=== PATIENT | male | born 1990 | race Caucasian/White ===

== ENCOUNTER 2022-11-28 01:24 | Emergency (ER) | payer OTHER ==
[~2022-11-28] VITALS: Ht 182.9 cm; Wt 109.1 kg
[2022-11-28 02:14] LABS: BASO # 0.1 10^3/uL (0.0-0.2); BASO % 0.7 % (0.0-1.0); EOS # 0.4 10^3/uL (0.0-0.5); EOS % 5.4 % (0.0-3.0); HEMATOCRIT 46.3 % (42.0-52.0); HEMOGLOBIN 15.6 g/dl (13.5-17.5); LYMPH # 2.6 10^3/uL (1.5-5.0); LYMPH % 35.8 % (24.0-44.0); MEAN CORPUSCULAR HEMOGLOBIN 29.3 pg (27.0-33.0); MEAN CORPUSCULAR HGB CONC 33.7 g/dl (32.0-36.5); MONO # 0.7 10^3/uL (0.0-0.8); MONO % 10.2 % (2.0-8.0); NEUTROPHILS # 3.4 10^3/uL (1.5-8.5); NEUTROPHILS % 47.6 % (36.0-66.0); PLATELET COUNT, AUTOMATED 211 10^3/uL (150-450); RED BLOOD COUNT 5.32 10^6/uL (4.30-6.10); WHITE BLOOD COUNT 7.2 10^3/uL (4.0-10.0)
[2022-11-28 02:26] LABS: BLOOD UREA NITROGEN 21 MG/DL (9-23); CALCIUM LEVEL 9.2 MG/DL (8.5-10.1); CARBON DIOXIDE LEVEL 25 MMOL/L (20-31); CHLORIDE LEVEL 106 MMOL/L (98-107); CK-MB VALUE MASS 14.2 NG/ML (<3.6); CREATININE FOR GFR 1.13 MG/DL (0.70-1.30); GLOMERULAR FILTRATION RATE > 60.0 (>60); GLUCOSE, FASTING 110 MG/DL (60-100); POTASSIUM SERUM 3.6 MMOL/L (3.5-5.1); SODIUM LEVEL 141 MMOL/L (136-145)
[2022-11-28 02:38] LABS: CPK CREATINE PHOSPHOKINASE 9277 U/L (46-171); MB/CK RELATIVE INDEX 0.15 (< OR =4)
[2022-11-28 04:23] LABS: CK-MB VALUE MASS 15.9 NG/ML (<3.6)
[2022-11-28 04:37] LABS: MB/CK RELATIVE INDEX 0.17 (< OR =4)
[2022-11-28] MEDS ORDERED: NS 1,000 ML IV ONE ×2 (04:50)
[2022-11-28 04:54] LABS: MYOGLOBIN SCREEN, URINE NEGATIVE (NEGATIVE)
[2022-11-28 05:25] LABS: AMPHETAMINES LEVEL URINE NEGATIVE (NEGATIVE); BARBITURATES URINE NEGATIVE (NEGATIVE); BENZODIAZEPINES URINE NEGATIVE (NEGATIVE); CANNABINOIDS URINE NEGATIVE (NEGATIVE); COCAINE METABOLITE URINE NEGATIVE (NEGATIVE); METHADONE URINE NEGATIVE (NEGATIVE); OPIATES URINE NEGATIVE (NEGATIVE); PHENCYCLIDINE URINE NEGATIVE (NEGATIVE)
[2022-11-28 06:41] VITALS: BP 142/82; TEMP 98.7; O2SAT 98
== END 2022-11-28 07:18 | disposition home or self-care (01) ==
LOC: M ED 01:24
DX: R07.9 Chest pain, unspecified (principal); R74.8 Abnormal levels of other serum enzymes; R00.1 Bradycardia, unspecified; E03.9 Hypothyroidism, unspecified

== ENCOUNTER → 2024-01-22 | Outpatient (REF) | LOC: M PLAIMG 10:13 | PROVIDERS: ATTEND Internal Medicine | DX: M79.604 Pain in right leg (principal); M79.605 Pain in left leg; M79.601 Pain in right arm; M79.602 Pain in left arm; M54.9 Dorsalgia, unspecified ==